=== PATIENT | female | born 1960 | race Caucasian/White ===

== ENCOUNTER 2019-04-10 08:43 | Day surgery (SDC) | payer OTHER ==
[~2019-04-10] VITALS: Ht 172.7 cm; Wt 96.8 kg
[2019-04-10] MEDS ORDERED: GLIPIZIDE (09:32)
[2019-04-10] MEDS ORDERED: METFORMIN (09:32)
[2019-04-10] MEDS ORDERED: MVI (09:32)
[2019-04-10 09:34] VITALS: Ht 172.7 cm; Wt 96.8 kg
[2019-04-10 09:46] VITALS: BP 117/69; PULSE 67; RESP 17
--- NOTE | 2019-04-10 09:54 | PREAC ---
Date/Time of Note Date/Time of Note DATE: 04/10/19 TIME: 09:53 Anesthesia Eval and Record Evaluation Time Pre-Procedure Interview DATE: 04/10/19 TIME: 09:53 Age 59 Sex female NPO: 8 hrs Preoperative diagnosis SCREENING Planned procedure COLONOSCOPY Past Medical History Past Medical History: Includes Endo: Diabetes GI: Obesity Surgery & Anesthesia Issues No known issue Meds Anticoagulation: No Beta Artem within 24 hr: No Reason Beta Artem not given: Pt. not on B-Artem Reported Medications [Mvi] No Conflict Check 04/10/19 [Metformin] No Conflict Check 04/10/19 [Glipizide] No Conflict Check 04/10/19 Meds reviewed: Yes Allergies Coded Allergies: Penicillins (Verified Adverse Reaction, Mild, yeast infection, 04/10/19) Allergies Reviewed: Yes Labs/Studies Labs Reviewed: Reviewed by anesthesiologist test: N/A Pre-procedure Exam Airway: Adequate mouth opening, Adequate thyromental dist Mallampati: Mallampati II Teeth: Normal Lung: Normal Heart: Normal ASA Physical Status ASA physical status: 2 Emergency: None Planned Anesthetic General/MAC: MAC Planned Pain Management Parenteral pain med Pre-operative Attestations Prior to commencing anesthesia and surgery, the patient was re-evaluated, there was verification of: *The patient's identity *The results of appropriate recent lab work and preoperative vital signs *The above evaluation not changing prior to induction *Anesthetic plan, risk benefits, alternative and complications discussed with patient/family; questions answered; patient/family understands, accepts and wishes to proceed. Abelardo Vela M.D. Apr 10, 2019 09:54
[2019-04-10] MEDS ORDERED: LIDOCAINE 100 MG SYRINGE ONE (09:55)
[2019-04-10] MEDS ORDERED: PROPOFOL 40 ML ONE (09:55)
[2019-04-10 10:48] VITALS: BP 119/63; PULSE 72; RESP 17
--- NOTE | 2019-04-10 12:03 | PAC ---
Date/Time of Note Date/Time of Note DATE: 04/10/19 TIME: 12:03 Post-Anesthesia Notes Post-Anesthesia Note Last documented vital signs Vital Signs Date Temp Pulse Resp B/P (MAP) Pulse Ox O2 O2 Flow FiO2 Time Delivery Rate 04/10/19 72 17 119/63 95 Room Air 10:48 (81) 04/10/19 97.8 09:46 Activity: WNL Respiratory function: WNL Cardiovascular function: WNL Mental status: Baseline Pain reasonably controlled: Yes Hydration appropriate: Yes Nausea/Vomiting absent: Yes Comments BT: 98.6 JELANI GLEASON MD Apr 10, 2019 12:03
== END 2019-04-10 12:40 | disposition home or self-care (01) ==
LOC: GIL 08:43
PROVIDERS: ATTEND Internal Medicine Gastroenterology
DX: Z12.11 Encounter for screening for malignant neoplasm of colon (principal); K64.8 Other hemorrhoids; D12.5 Benign neoplasm of sigmoid colon; K62.1 Rectal polyp; E11.9 Type 2 diabetes mellitus without complications
CPT/HCPCS: 45380; 82962; 88305; J2001; Z7610